=== PATIENT | male | born 2000 | race Asian ===

== ENCOUNTER 2021-02-28 13:05 | Emergency (ER) | payer OTHER ==
[~2021-02-28] VITALS: Ht 182.9 cm; Wt 75.0 kg
[2021-02-28 16:54] VITALS: BP 127/76
== END 2021-02-28 16:56 | disposition home or self-care (01) ==
LOC: M ED 13:05
DX: J06.9 Acute upper respiratory infection, unspecified (principal); R05 Cough; R43.8 Other disturbances of smell and taste; R09.81 Nasal congestion; R09.82 Postnasal drip; R50.9 Fever, unspecified; R68.83 Chills (without fever); F17.200 Nicotine dependence, unspecified, uncomplicated
CPT/HCPCS: 99283; U0003